=== PATIENT | male | born 1985 | race Two or more races ===

== ENCOUNTER 2017-02-01 23:43 | Observation (INO) | payer OTHER ==
[~2017-02-01] VITALS: Ht 152.4 cm; Wt 59.0 kg
[2017-02-02 00:17] LABS: BASO % 1 % (0-3); EOS % 8 % (0-3); HEMATOCRIT 48.3 % (39.0-53.0); HEMOGLOBIN 15.9 g/dL (13.0-17.5); LYMPH # 4.6 x10^3/uL (1.0-4.8); LYMPH % 56 % (24-48); MEAN CORPUSCULAR HEMOGLOBIN 29 pg (25-35); MEAN CORPUSCULAR HGB CONC 33 g/dL (31-37); MEAN CORPUSCULAR VOLUME 87 fL (79-100); MONO % 7 % (0-9); NEUT % 29 % (31-73); PLATELET COUNT 296 x10^3/uL (140-400); RED BLOOD COUNT 5.57 x10^6/uL (4.30-5.70); RED CELL DISTRIBUTION WIDTH 14.1 % (11.5-14.5); WHITE BLOOD COUNT 8.1 x10^3/uL (4.0-11.0)
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
[2017-02-02 00:26] LABS: CALCIUM 8.8 mg/dL (8.5-10.1); CREATININE 1.2 mg/dL (0.7-1.3); GFR 71.1; POTASSIUM 4.1 mmol/L (3.5-5.1)
[2017-02-02 00:32] LABS: ALBUMIN 4.1 g/dL (3.4-5.0); ALBUMIN/GLOBULIN RATIO 1.1 (1.0-1.7); INR 0.9 (0.8-1.1); PROTHROMBIN TIME PATIENT 11.6 SEC (11.7-14.0); TOTAL BILIRUBIN 0.2 mg/dL (0.2-1.0)
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
[2017-02-02 00:58] LABS: BILIRUBIN,URINE NEGATIVE (NEG); GLUCOSE,URINE NEGATIVE (NEG); NITRITE,URINE NEGATIVE (NEG); PROTEIN,URINE NEGATIVE (NEG-TRACE); UROBILINOGEN,URINE 0.2 mg/dL (0.2 mg/dL)
[2017-02-02] MEDS ORDERED: IV NORMAL SALINE 500ML BAG 500 ML IV ONE (01:00)
[2017-02-02] MEDS ORDERED: DIPHTH,PERTUSS(ACELL),TET TOX 0.5 ML DISP.SYRIN. VAX IM ONE (01:00)
[2017-02-02 01:04] LABS: BARBITURATES NEG (NEG); BENZODIAZEPINES NEG (NEG); CANNABINOIDS NEG (NEG); COCAINE NEG (NEG); ETHANOL, URINE POS (NEG); METHADONE NEG (NEG); OPIATES NEG (NEG); PHENCYCLIDINE NEG (NEG)
[2017-02-02] MEDS ORDERED: LIDOCAINE 1% / SOD BICARB 8.4% 20 ML VIAL. IJ ONE (01:15)
[2017-02-02 01:17] LABS: BACTERIA,URINE 0 /HPF (0-FEW); RBC,URINE OCC /HPF (0-2); SQUAMOUS EPITHELIAL CELL,UR FEW /LPF; WBC,URINE 0 /HPF (0-4)
[2017-02-02 01:28] LABS: % EOS 10 % (0-5); PLT ESTIMATE ADEQUATE (ADEQUATE)
[2017-02-02] MEDS ORDERED: ONDANSETRON PF 4 MG/2 ML VIAL. IV PRN (02:00)
--- NOTE | 2017-02-02 02:03 | ACF ---
Admit Criteria Forms Admit Criteria Forms Admit Criteria Forms SUBSTANCE ABUSE Clinical Indications for Admission to Inpatient Care (Place 'X' for any and all applicable criteria): Admission is indicated due to ANY ONE of the following(1)(2)(3)(4)(5): [ ]I. Delirium due to alcohol or sedative A withdrawal B ( Also use Delirium Criteria as appropriate)1,6,7 [ ]II. Alcohol or sedative withdrawal with high-risk indicator as manifested by ALL of the following1,3,6,7 [ ]a) Signs of withdrawal as indicated by ANY ONE of the following: [ ]i) Heart rate greater than 100 beats per minute [ ]ii) Nausea or vomiting [ ]iii) Other physical signs of alcohol or sedative withdrawal [ ]iv) Tremor [ ](v) Increased perspiration [ ]b) Elevated risk due to a historical or comorbid factor as indicated by ANY ONE of the following: [ ]i) History of delirium due to alcohol or sedative withdrawal [ ]ii) History of repetitive seizures due to alcohol or sedative withdrawal C [ ]iii) Intrinsic seizure disorder (epilepsy) [ ]iv) [ ]v) Comorbid medical condition that can be dangerously destabilized by alcohol or sedative withdrawal (eg, severe cardiac disease) [ ]III. Severe alcohol or sedative withdrawal that is unmanageable at lower level of care, as manifested by ALL of the following1,3,6,7 [ ]a) Marked signs of withdrawal as indicated by ANY ONE of the following: [ ]i) Heart rate greater than 120 beats per minute [ ]ii) Vomiting [ ]iii) Grossly visible tremor [ ]iv) Profuse perspiration [ ]v) Temperature greater than 38.3 degrees C (101 degrees F) [ ]vi) Other marked physical signs of alcohol or sedative withdrawal [ ]b) Signs of withdrawal which require inpatient treatment as indicated by ANY ONE of the following: [ ]i) Inadequate response to pharmacotherapy in emergency department or other appropriate lower level of care [ ]ii) Lower level of care not feasible or appropriate (eg, unavailable or inappropriate to patient condition or treatment history) [ ]IV. Severely complicated opioid withdrawal that requires [id number] care as manifested by ALL of the following 1,4,7,11 [ ]a) Vomiting or diarrhea due to opioid withdrawal [ ]b) Marked dehydration or electrolyte abnormality that cannot be corrected (to near normal) in an emergency department or other ambulatory setting (eg, serum K<2.5 mEq/L , serum Na <130 mEq/L [X]V. Acute toxicity or instability from substance use requiring inpatient care (eg, altered mental status, respiratory depression) that has had inadequate response to, or is judged inappropriate for, treatment at lower level of care (eg, emergency department, observation care) [ ]. Other inpatient medical or psychiatric care is needed due to risk or comorbidity as indicated by ALL of the following(18): [ ]a) Treatment is needed because of patient risk due to ANY ONE of the following: [ ]i) Medical condition (eg, severe cardiac disease) that requires 24-hour monitoring and treatment due to danger of destabilization by alcohol or sedative withdrawal is present [ ]ii) Imminent danger to self is present due to ANY ONE of the following(19)(20)(21): [ ]1) Imminent risk for recurrence of Suicide attempt or act of serious Harm to self is present as indicated by ALL of the following: [ ]A. There has been very recent Suicide attempt or deliberate act of serious Harm to self. [ ]B. There has not been Sufficient relief of the factors that precipitated the attempt or act. [ ]2) Current plan for suicide or serious Harm to self is present. [ ]3) Command auditory hallucinations for suicide or serious Harm to self are present. [ ]4) Patient has persistent Thoughts of suicide or serious Harm to self that cannot be adequately monitored at lower level of care due to ANY ONE of the following[E]: [ ]A. Insufficient behavioral care is available to meet patient needs (such as required provider or lower level facility is not available). [ ]B. Patient characteristics such as high impulsivity or unreliability are present. [ ]C. Environment does not support recovery. [ ]D. Ready access to lethal means [ ]iii) Imminent danger to others is present due to ANY ONE of the following(19)(23)(24): [ ]1) Imminent risk for recurrence of attempt to seriously Harm another is present as indicated by ALL of the following: [ ]A. There has been very recent attempt to seriously Harm another. [ ]B. There has not been Sufficient relief of factors that precipitated the attempt or act. [ ]2) Current plan for homicide or serious Harm to another is present. [ ]3) Command auditory hallucinations or paranoid delusions contributing to risk for homicide or serious Harm to another are present. [ ]4) Patient has persistent thoughts of homicide or serious Harm to another that cannot be adequately monitored at lower level of care because of ANY ONE of the following[E]: [ ]A. Insufficient behavioral care is available to meet patient needs (such as required provider or lower level facility is not available). [ ]B. High impulsivity or unreliability is present. [ ]C. Environment does not support recovery. [ ]D. Ready access to lethal means [ ]iv) Severe dysfunction in daily living related to substance use disorder as indicated by ANY ONE of the following(33): [ ]a) Extreme deterioration in social interactions (eg , threatening behaviors with little or no provocation) [ ]b) Complete withdrawal from all social interactions [ ]c) Complete neglect of self-care with associated impairment in physical status [ ]d) Extreme disruption in vegetative function (eg, life-sustaining functions such as eating) [ ]e) Complete inability to maintain any appropriate aspect of personal responsibility in any adult roles (eg, occupational, parental ) [ ]v) Other emotional, behavioral, or cognitive symptoms of sufficient severity to preclude ability to engage in recovery without 24-hour monitoring and treatment are present. [ ]vi) Patient requires monitoring due to substance use in combination with medical, psychiatric, or environmental factors that prevent adequate management at lower level of care as indicated by ALL of the following: [ ]1) Significant substance use effects, medical conditions, or psychiatric comorbidities are present as indicated by ANY ONE of the following [ ]A. Substance toxicity or withdrawal requires medical monitoring. [ ]B. Medical comorbidity requires medical monitoring for destabilization due to alcohol or sedative withdrawal. [ ]C. Emotional, behavioral, or cognitive symptoms of sufficient severity to limit or preclude ability to engage in treatment are present. [ ]2) Conditions, barriers, or environmental factors preventing treatment at lower level of care are present as indicated by ANY ONE of the following: [ ]A. Psychiatric comorbidity or opposition to treatment requires 24-hour setting to ensure adherence with medical treatment or adequate motivating interventions. [ ]B. Severe behavioral problems (eg, escalating relapse behaviors, acute psychiatric or substance use crisis, inability to recognize signs and symptoms of relapse ) require 24-hour setting for relapse prevention.[F] [ ]C. Living environment outside of 24-hour setting prevents recovery (eg, abuse, victimization, patient inability to cope). [ ]b Treatment situation and needs are appropriate for inpatient level ( instead of using lower level of care) as indicated by ANY ONE of the following( 25)(26)(27): [ ]i) Patient is unwilling to participate voluntarily and requires treatment (eg, legal commitment) in involuntary unit.(23) [ ]ii) Voluntary treatment at lower level is not feasible (eg, lower level care unavailable or inappropriate for patient condition). [ ]iii) Physical restraint, seclusion, or other involuntary control is needed (eg, actively violent patient for whom treatment in an involuntary unit is deemed necessary in accord with applicable medical and legal criteria).(23) [ ]iv) [id number] medical or nursing care to address symptoms and initiate interventions is required; specific need is identified. Extended stay beyond goal length of stay may be needed for: [ ]a) Onset of delirium [ ]b) Recurrent seizures [ ]c) Persistent severe alcohol or sedative withdrawal [ ]d) Persistent dangerous behavior The original [employer] content created by [employer] has been revised. The portions of the content which have been revised are identified through the use of italic text or in bold, and [facility] [employer] has neither reviewed nor approved the modified material. All other unmodified content is copyright [employer]. Please see references footnoted in the original [employer] edition 2016 JENNIFER GARCIA Feb 02, 2017 02:03
[2017-02-02] MEDS: IV NORMAL SALINE 1000ML BAG 1,000 ML IV SCH ×2 (03:52→11:35)
[2017-02-02 04:09] VITALS: BP 119/79
[2017-02-02 07:00] VITALS: BP 106/62
--- NOTE | 2017-02-02 07:41 | RAD ---
EXAM: Pelvis, single view. HISTORY: Pain. COMPARISON: None. FINDINGS: A frontal view of the pelvis is obtained. There is no fracture, dislocation or subluxation. There is lumbar levoscoliosis. IMPRESSION: No acute osseous finding.
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
[2017-02-02 11:00] VITALS: BP 101/69
[2017-02-02 14:40] VITALS: BP 108/69
[2017-02-02] MEDS ORDERED: HYDR-2666 PO (15:13)
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
== END 2017-02-02 16:00 | disposition home or self-care (01) ==
LOC: ER 23:43 → 5 NORTH 02-02 01:45
PROVIDERS: ADMIT Internal Medicine Hematology & Oncology; ATTEND Internal Medicine Hematology & Oncology
DX: S01.511A Laceration without foreign body of lip, initial encounter (principal); F10.129 Alcohol abuse with intoxication, unspecified; V47.5XXA Car driver injured in collision with fixed or stationary object in traffic accident, initial encounter; Y93.89 Activity, other specified; Y92.488 Other paved roadways as the place of occurrence of the external cause; Y99.8 Other external cause status
CPT/HCPCS: 12013; 36415; 70450; 70486; 71010; 72125; 72170; 80053; 81001; 85007; 85027; 85610; 85730; 90471; 90715; 96360; 96361; 99285; G0378; G0480; G0481; J7030; J7040; G0379